=== PATIENT | male | born 1965 | race Caucasian/White ===

== ENCOUNTER 2019-04-12 16:34 | Emergency (ER) | payer OTHER ==
[~2019-04-12] VITALS: Ht 177.8 cm; Wt 102.3 kg
[~2019-04-12 16:34] MED LIST: FLAG500T; LEVA500T; VICO5TAB
[2019-04-12] MEDS ORDERED: IBUP200C25 PO (16:46)
[2019-04-12] MEDS ORDERED: NS 500 ML IV ONE (17:15)
[2019-04-12] MEDS ORDERED: ISOVUE-370 76% 100ML VIAL (Q9967) As Ordered ONE ×2 (17:15→19:47)
--- NOTE | 2019-04-12 17:29 | REP ---
CT BRAIN WITHOUT CONTRAST: CT brain was performed without IV contrast. There is mild to moderate atrophy. There is no midline shift or mass effect. There are patchy low densities in the periventricular white matter bilaterally compatible with small vessel ischemic changes with a more focal band of old infarct in the right frontal region. There is no acute intracranial hemorrhage or extra-axial fluid collection. There are vascular calcifications in the carotid siphons. IMPRESSION: Chronic atrophy and periventricular small vessel ischemic change. No acute intracranial hemorrhage. Electronically Signed by Rogers Kwan MD 04/12/2019 05:50 P
[2019-04-12 17:40] LABS: BASO % 0.4 % (0.0-1.0); EOS # 0.1 10^3/uL (0.0-0.50); EOS % 0.9 % (0.0-3.0); HEMATOCRIT 45.6 % (42.0-52.0); HEMOGLOBIN 16.3 g/dl (13.5-17.5); LYMPH # 1.4 10^3/uL (1.5-4.5); LYMPH % 13.1 % (24.0-44.0); MEAN CORPUSCULAR HEMOGLOBIN 33.5 pg (27.0-33.0); MEAN CORPUSCULAR HGB CONC 35.7 g/dl (32.0-36.5); MEAN CORPUSCULAR VOLUME 93.6 fl (80.0-96.0); MONO # 0.7 10^3/uL (0.0-0.8); MONO % 6.3 % (0.0-5.0); NEUTROPHILS # 8.2 10^3/uL (1.8-7.7); PLATELET COUNT, AUTOMATED 192 10^3/uL (150-450); RED BLOOD COUNT 4.87 10^6/uL (4.30-6.10); WHITE BLOOD COUNT 10.4 10^3/uL (4.0-10.0)
[2019-04-12 17:53] LABS: INR 1.01; PARTIAL THROMBOPLASTIN TIME 24.4 SECONDS (25.0-38.4)
--- NOTE | 2019-04-12 18:00 | REP ---
CHEST: SINGLE VIEW: There is no evidence of acute infiltrate. No pleural effusion is seen. The heart is normal in size. The mediastinal silhouette is unremarkable. The visualized osseous structures are intact. IMPRESSION: No acute pulmonary disease. Electronically Signed by Rogers Kwan MD 04/12/2019 07:13 P
[2019-04-12 18:13] LABS: BLOOD UREA NITROGEN 23 MG/DL (7-18); CALCIUM LEVEL 8.3 MG/DL (8.5-10.1); CARBON DIOXIDE LEVEL 25 MEQ/L (21-32); CHLORIDE LEVEL 109 MEQ/L (98-107); CK-MB VALUE MASS 3.3 NG/ML (<3.6); CPK CREATINE PHOSPHOKINASE 287 U/L (39-308); CREATININE FOR GFR 1.29 MG/DL (0.70-1.30); GLOMERULAR FILTRATION RATE > 60.0 (>56); GLUCOSE, FASTING 102 MG/DL (70-100); MB/CK RELATIVE INDEX 1.15 (< OR =4); POTASSIUM SERUM 3.6 MEQ/L (3.5-5.1); SODIUM LEVEL 142 MEQ/L (136-145); TROPONIN I < 0.02 NG/ML (< 0.10)
[2019-04-12] MEDS ORDERED: ASPIRIN 325 MG TAB PO ONE (18:30)
--- NOTE | 2019-04-12 20:54 | REPVR ---
EXAM: CT Angiography Neck With Contrast EXAM DATE/TIME: 04/12/2019 7:46 PM CLINICAL HISTORY: 53 years old, male; Other: CVA TECHNIQUE: Imaging protocol: Axial computed tomographic angiography images of the neck with intravenous contrast using CT angiography protocol. Coronal and sagittal reformatted images were created and reviewed. 3D rendering: MIP reconstructed images were created and reviewed. Radiation optimization: All CT scans at this facility use at least one of these dose optimization techniques: automated exposure control; mA and/or kV adjustment per patient size (includes targeted exams where dose is matched to clinical indication); or iterative reconstruction. Contrast material: ISOVUE 370;Contrast volume: 100 ml;Contrast route: IV; COMPARISON: No relevant prior studies available. FINDINGS: VASCULATURE: Right common carotid artery: Unremarkable. No stenosis. No dissection or occlusion. Right internal carotid artery: Unremarkable extracranial segment. No stenosis. No dissection or occlusion. Right external carotid artery: Unremarkable. No occlusion or stenosis of the origin. Right vertebral artery: The right vertebral artery is smaller than the left. Left common carotid artery: Unremarkable. No stenosis. No dissection or occlusion. Left internal carotid artery: Unremarkable extracranial segment. No stenosis. No dissection or occlusion. Left external carotid artery: Unremarkable. No occlusion or stenosis of the origin. Left vertebral artery: Unremarkable. No stenosis. No dissection or occlusion. NECK: Sinuses: Minimal bilateral maxillary sinus mucosal thickening, right greater than left. Bones/joints: Degenerative spondylosis of the cervical spine. Soft tissues: Normal. No significant soft tissue swelling. Lungs: Minimal biapical groundglass infiltrates and atelectasis. IMPRESSION: 1. Minimal biapical groundglass infiltrates and atelectasis. 2. Minimal bilateral maxillary sinus disease. 3. Negative CTA neck. 0% stenosis and no occlusion. COMMENT: Reference per NASCET criteria for degree of stenosis: Mild: less than 50% stenosis. Moderate: 50-69% stenosis. Severe: 70-94% stenosis. Near occlusion: 95-99% stenosis. A Electronically signed by: Geronimo Bravo On 04/12/2019 20:54:18 PM
[2019-04-12 20:55] VITALS: BP 161/93
--- NOTE | 2019-04-12 20:57 | REPVR ---
EXAM: CT Angiography Head With Contrast EXAM DATE/TIME: 04/12/2019 7:46 PM CLINICAL HISTORY: 53 years old, male; Other: CVA TECHNIQUE: Imaging protocol: Computed tomographic angiography images of the head with intravenous contrast using CT angiography protocol. Coronal and sagittal reformatted images were created and reviewed. 3D rendering: MIP reconstructed images were created and reviewed. Radiation optimization: All CT scans at this facility use at least one of these dose optimization techniques: automated exposure control; mA and/or kV adjustment per patient size (includes targeted exams where dose is matched to clinical indication); or iterative reconstruction. Contrast material: ISOVUE 370;Contrast volume: 100 ml;Contrast route: IV; COMPARISON: CT Head without contrast 04/12/2019 4:49 PM FINDINGS: Right internal carotid artery: Unremarkable. Intracranial segment is patent with no significant stenosis. No aneurysm. Right anterior cerebral artery: Unremarkable. No occlusion or significant stenosis. No aneurysm. Right middle cerebral artery: Unremarkable. No occlusion or significant stenosis. No aneurysm. Right posterior cerebral artery: Unremarkable. No occlusion or significant stenosis. No aneurysm. Large patent bilateral posterior communicating arteries which are dominant supply to the posterior cerebral arteries. Right vertebral artery: Unremarkable. No occlusion or significant stenosis. No aneurysm. Left internal carotid artery: Unremarkable. Intracranial segment is patent with no significant stenosis. No aneurysm. Left anterior cerebral artery: Unremarkable. No occlusion or significant stenosis. No aneurysm. Left middle cerebral artery: Unremarkable. No occlusion or significant stenosis. No aneurysm. Left posterior cerebral artery: Unremarkable. No occlusion or significant stenosis. No aneurysm. Large patent bilateral posterior communicating arteries which are dominant supply to the posterior cerebral arteries. Left vertebral artery: Unremarkable. No occlusion or significant stenosis. No aneurysm. Basilar artery: Unremarkable. No occlusion or significant stenosis. No aneurysm. IMPRESSION: Negative CTA head. 0% stenosis and no occlusion. Electronically signed by: Geronimo Bravo On 04/12/2019 20:57:28 PM
--- NOTE | 2019-04-12 21:02 | ECGEPIP ---
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
== END 2019-04-12 20:58 | disposition short-term general hospital (02) ==
LOC: M ED 16:34 → EDBD 16:34 → M ED 20:58
DX: I63.9 Cerebral infarction, unspecified (principal); I10 Essential (primary) hypertension; R29.700 NIHSS score 0; I67.82 Cerebral ischemia; Z86.79 Personal history of other diseases of the circulatory system; I45.10 Unspecified right bundle-branch block; Z86.73 Personal history of transient ischemic attack (TIA), and cerebral infarction without residual deficits
CPT/HCPCS: 70450; 70496; 70498; 71045; 80048; 82550; 82553; 85025; 85610; 85730; 86850; 86900; 86901; 93005; 93041; 94760; 96360; 99285; Q9967

== ENCOUNTER 2019-05-16 09:39 | Emergency (ER) | payer OTHER ==
[~2019-05-16] VITALS: Ht 177.8 cm; Wt 96.4 kg
[~2019-05-16 09:39] MED LIST changes: +IBUP200C25 PO
[2019-05-16 10:33] LABS: BASO # 0.1 10^3/uL (0.0-0.2); BASO % 0.6 % (0.0-1.0); EOS # 0.2 10^3/uL (0.0-0.50); EOS % 1.9 % (0.0-3.0); HEMATOCRIT 48.5 % (42.0-52.0); HEMOGLOBIN 17.1 g/dl (13.5-17.5); LYMPH # 2.1 10^3/uL (1.5-4.5); LYMPH % 25.6 % (24.0-44.0); MEAN CORPUSCULAR HEMOGLOBIN 32.3 pg (27.0-33.0); MEAN CORPUSCULAR HGB CONC 35.3 g/dl (32.0-36.5); MEAN CORPUSCULAR VOLUME 91.5 fl (80.0-96.0); MONO # 0.8 10^3/uL (0.0-0.8); MONO % 10.1 % (0.0-5.0); NEUTROPHILS # 5.1 10^3/uL (1.8-7.7); NEUTROPHILS % 61.6 % (36.0-66.0); PLATELET COUNT, AUTOMATED 199 10^3/uL (150-450); WHITE BLOOD COUNT 8.3 10^3/uL (4.0-10.0)
[2019-05-16 11:14] LABS: BLOOD UREA NITROGEN 15 MG/DL (7-18); CALCIUM LEVEL 8.7 MG/DL (8.5-10.1); CARBON DIOXIDE LEVEL 28 MEQ/L (21-32); CHLORIDE LEVEL 106 MEQ/L (98-107); GLOMERULAR FILTRATION RATE > 60.0 (>56); GLUCOSE, FASTING 87 MG/DL (70-100); POTASSIUM SERUM 3.8 MEQ/L (3.5-5.1); SODIUM LEVEL 142 MEQ/L (136-145)
[2019-05-16] MEDS ORDERED: CHLORTHALIDONE 25 MG TAB PO ONE (11:30)
[2019-05-16] MEDS ORDERED: lisinopriL 10 MG TAB PO ONE (11:30)
[2019-05-16] MEDS ORDERED: amLODIPine 5 MG TAB PO ONE (12:45)
[2019-05-16 12:55] VITALS: BP 172/108
--- NOTE | 2019-05-16 13:50 | REP ---
PORTABLE CHEST X-RAY: Single view. HISTORY: Hypertension. COMPARISON CHEST X-RAY: April 12, 2019. FINDINGS: EKG monitoring electrodes overlie the chest. There are degenerative disc changes in the thoracic spine. Heart is not enlarged. The aorta is somewhat tortuous. Pleural angles are sharp. No infiltrate is seen in the lung méndez. IMPRESSION: No acute disease. Electronically Signed by Richard Coreas MD 05/16/2019 04:41 P
[2019-05-16] MEDS ORDERED: LISI20TA20 PO (14:44)
[2019-05-16 14:45] VITALS: BP 156/87
--- NOTE | 2019-05-17 20:36 | ECGEPIP ---
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
== END 2019-05-16 14:52 | disposition home or self-care (01) ==
LOC: M ED 09:39
DX: R03.0 Elevated blood-pressure reading, without diagnosis of hypertension (principal); R00.1 Bradycardia, unspecified; I45.19 Other right bundle-branch block; Z79.899 Other long term (current) drug therapy

== ENCOUNTER → 2019-07-09 | Outpatient (REF) | payer OTHER ==
[~2019-07-09] MED LIST changes: +LISI20TA20 PO
[2019-07-09 16:03] LABS: CHOLESTEROL LEVEL 321 MG/DL (<200); CHOLESTEROL RISK RATIO 7.465 (<5); HDL CHOLESTEROL 43 MG/DL (>40); NON-HDL-C 278 MG/DL; TRIGLYCERIDES LEVEL 464 MG/DL (<150)
[2019-07-09 16:32] LABS: HEMOGLOBIN A1c 5.8 %
== END ==
LOC: M SFHCPLAZ 13:53
PROVIDERS: ATTEND Family Medicine
DX: Z13.1 Encounter for screening for diabetes mellitus (principal); Z13.220 Encounter for screening for lipoid disorders

== ENCOUNTER → 2020-03-05 | Outpatient (REF) | payer OTHER ==
[~2020-03-05] MED LIST changes: +ATEN50TA9; +ATOR80TA59; +MECL1TAB31 PO
[2020-03-05 13:43] LABS: CHOLESTEROL RISK RATIO 4.783 (<5)
== END ==
LOC: M SFHCPLAZ 10:46
PROVIDERS: ATTEND Family Medicine
DX: E78.5 Hyperlipidemia, unspecified (principal)

== ENCOUNTER 2020-03-31 13:53 | Emergency (ER) | payer OTHER ==
[~2020-03-31] VITALS: Ht 175.3 cm; Wt 95.5 kg
[~2020-03-31 13:53] MED LIST changes: -ATEN50TA9; -ATOR80TA59; -MECL1TAB31 PO
[2020-03-31] MEDS ORDERED: ATOR80TA59 (14:17)
[2020-03-31] MEDS ORDERED: ATEN50TA9 (14:17)
[2020-03-31 14:48] VITALS: BP 127/82
[2020-03-31 15:05] LABS: BASO # 0.1 10^3/uL (0.0-0.2); BASO % 0.5 % (0.0-1.0); EOS # 0.2 10^3/uL (0.0-0.5); EOS % 1.6 % (0.0-3.0); HEMATOCRIT 49.8 % (42.0-52.0); HEMOGLOBIN 16.7 g/dl (13.5-17.5); LYMPH # 2.3 10^3/uL (1.5-5.0); LYMPH % 24.6 % (24.0-44.0); MEAN CORPUSCULAR HEMOGLOBIN 31.5 pg (27.0-33.0); MEAN CORPUSCULAR HGB CONC 33.5 g/dl (32.0-36.5); MONO # 0.9 10^3/uL (0.0-0.8); MONO % 10.1 % (0.0-5.0); NEUTROPHILS # 5.8 10^3/uL (1.5-8.5); NEUTROPHILS % 62.9 % (36.0-66.0); PLATELET COUNT, AUTOMATED 204 10^3/uL (150-450); WHITE BLOOD COUNT 9.2 10^3/uL (4.0-10.0)
[2020-03-31 15:26] LABS: INR 0.98; PROTHROMBIN TIME 12.7 SECONDS (11.8-14.0)
[2020-03-31 15:36] LABS: BLOOD UREA NITROGEN 24 MG/DL (7-18); CALCIUM LEVEL 9.3 MG/DL (8.5-10.1); CARBON DIOXIDE LEVEL 30 MEQ/L (21-32); CHLORIDE LEVEL 105 MEQ/L (98-107); CK-MB VALUE MASS < 1.0 NG/ML (<3.6); CPK CREATINE PHOSPHOKINASE 161 U/L (39-308); CREATININE FOR GFR 1.51 MG/DL (0.70-1.30); GLOMERULAR FILTRATION RATE 51.5 (>56); GLUCOSE, FASTING 104 MG/DL (70-100); MB/CK RELATIVE INDEX 0.62 (< OR =4); POTASSIUM SERUM 3.9 MEQ/L (3.5-5.1); SODIUM LEVEL 142 MEQ/L (136-145); TROPONIN I < 0.02 NG/ML (< 0.10)
--- NOTE | 2020-03-31 16:36 | ECGEPIP ---
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
--- NOTE | 2020-03-31 16:36 | REPVR ---
PROCEDURE INFORMATION: Exam: MR Head Without Contrast Exam date and time: 03/31/2020 4:03 PM Age: 54 years old Clinical indication: Condition or disease; Aneurysm, cerebral; Other: Unbalanced gait, dizziness; Prior surgery; Surgery date: 6+ months; Surgery type: Aneurysm repair 2005 no coils/clips/stents used cleared per Dr. Cartagena; Patient HX: Dizziness, confusion, unbalanced gait as of this morning, HX brain aneurysm; Additional info: Vertigo R/O cerebellar CVA TECHNIQUE: Imaging protocol: MR of the head without contrast. COMPARISON: CT Head without contrast 03/31/2020 2:20 PM FINDINGS: Brain: Prior right frontal shunt catheter tract is apparent with accompanying gladys hole right frontal bone. There is probable encephalomalacia medially in the thalamus on the left. No restricted diffusion to suggest acute infarction. The posterior fossa is unremarkable. No acute intracranial hemorrhage. A minimal number of white matter hyperintensities are apparent within the centrum semiovale which is a nonspecific finding but often associated with small vessel occlusive disease. There is a probable prior hemorrhage in the medial left thalamus. Ventricles: No ventriculomegaly. Anatomic distortion of the 3rd ventricle along the left thalamic margin. Bones/joints: Unremarkable other than right frontal gladys hole. Sinuses: Mucoperiosteal thickening in the floor the right maxillary antrum.The remainder of the paranasal sinuses appear clear. Mastoid air cells: Normal as visualized. No mastoid effusion. Orbits: Unremarkable. Soft tissues: Unremarkable. IMPRESSION: No evidence of acute cerebral infarction or intracranial hemorrhage. Electronically signed by: Chel El On 03/31/2020 16:35:42 PM
[2020-03-31] MEDS ORDERED: MECL1TAB31 PO (16:43)
[2020-03-31 17:00] VITALS: BP 117/79
--- NOTE | 2020-04-01 01:30 | REP ---
CT BRAIN WITHOUT CONTRAST: CT brain performed without IV contrast and compared to prior study of 04/12/2019. No change since that prior exam. There is mild atrophy. There is no midline shift or mass effect. Kwan-white differentiation is well maintained with old ischemic change in the right frontal region, stable. There is no acute hemorrhage. There is no extra-axial fluid collection. There are vascular calcifications in the carotid siphons. IMPRESSION: Stable chronic findings with no evidence of acute intracranial hemorrhage, midline shift, or mass effect. Electronically Signed by Rogers Kwan MD 04/01/2020 11:35 P
--- NOTE | 2020-04-01 02:10 | REP ---
CHEST, SINGLE VIEW: Single view of the chest is performed and compared to prior study of 12/14/2018. There are mild stable chronic bibasilar interstitial opacities. No acute infiltrate is seen. Heart is not enlarged. There is tortuosity of the thoracic aorta. Mediastinal silhouette is unchanged. There are degenerative changes of the spine. IMPRESSION: Stable chronic findings with no acute pulmonary disease. Electronically Signed by Rogers Kwan MD 04/01/2020 11:38 P
== END 2020-03-31 17:36 | disposition home or self-care (01) ==
LOC: M ED 13:53 → EDBD 13:53 → M ED 17:36
DX: R42 Dizziness and giddiness (principal); Z87.820 Personal history of traumatic brain injury; I10 Essential (primary) hypertension; F41.9 Anxiety disorder, unspecified; Z79.899 Other long term (current) drug therapy

== ENCOUNTER 2021-02-20 16:27 | Observation (INO) | payer OTHER ==
[~2021-02-20] VITALS: Ht 177.8 cm; Wt 103.5 kg
[~2021-02-20 16:27] MED LIST changes: +ATEN50TA9; +ATOR80TA59 PO; +MECL1TAB31 PO
[2021-02-20] MEDS ORDERED: CARV3.12 PO (16:49)
[2021-02-20] MEDS ORDERED: LOSA100T50 PO (16:50)
--- NOTE | 2021-02-20 17:47 | REPVR ---
PROCEDURE INFORMATION: Exam: CT Head Without Contrast Exam date and time: 02/20/2021 5:16 PM Age: 55 years old Clinical indication: Dizziness; Additional info: Dizzy TECHNIQUE: Imaging protocol: Computed tomography of the head without contrast. Radiation optimization: All CT scans at this facility use at least one of these dose optimization techniques: automated exposure control; mA and/or kV adjustment per patient size (includes targeted exams where dose is matched to clinical indication); or iterative reconstruction. COMPARISON: CT Head without contrast 03/31/2020 2:20 PM FINDINGS: Tubes, catheters and devices: Prior ventriculostomy catheter tract right superior anterior frontal lobe. Brain: Chronic left anteromedial thalamic infarction. Mild hypoattenuating foci are noted in the anterior lateral ventricular periventricular white matter bilaterally. No intracranial hemorrhage. No mass or acute cortical infarction identified. Ventricles: Prominence of the ventricular system and subarachnoid spaces is consistent with the patient's age of 55 years. Deformity of the 3rd ventricle secondary to left thalamic infarction. No hydrocephalus or evidence of increased intracranial pressure. Paranasal sinuses: Hypoplastic right frontal sinus, normal variant. Mastoid air cells: Visualized mastoid air cells are well aerated. Vasculature: Atherosclerotic calcifications are present involving the left carotid artery siphon. Bones/joints: Previous gladys hole right superior frontal region. Soft tissues: Unremarkable. IMPRESSION: 1. Chronic left anteromedial thalamic infarction. 2. Age appropriate supratentorial and infratentorial atrophy. 3. Mild chronic white matter microvascular ischemic disease. 4. No acute intracranial abnormality identified. Electronically signed by: Rafa Turk On 02/20/2021 17:47:23 PM
[2021-02-20 17:57] LABS: BASO # 0.1 10^3/uL (0.0-0.2); BASO % 0.7 % (0.0-1.0); EOS # 0.2 10^3/uL (0.0-0.5); EOS % 2.3 % (0.0-3.0); HEMATOCRIT 45.1 % (42.0-52.0); HEMOGLOBIN 15.7 g/dl (13.5-17.5); LYMPH # 2.6 10^3/uL (1.5-5.0); LYMPH % 29.9 % (24.0-44.0); MEAN CORPUSCULAR HEMOGLOBIN 33.1 pg (27.0-33.0); MEAN CORPUSCULAR HGB CONC 34.8 g/dl (32.0-36.5); MEAN CORPUSCULAR VOLUME 94.9 fl (80.0-96.0); MONO # 0.8 10^3/uL (0.0-0.8); MONO % 9.6 % (2.0-8.0); NEUTROPHILS % 57.3 % (36.0-66.0); PLATELET COUNT, AUTOMATED 185 10^3/uL (150-450); RED BLOOD COUNT 4.75 10^6/uL (4.30-6.10); WHITE BLOOD COUNT 8.8 10^3/uL (4.0-10.0)
[2021-02-20 18:35] LABS: ALBUMIN 3.9 GM/DL (3.2-5.2); BILIRUBIN,TOTAL 0.8 MG/DL (0.2-1.0); CALCIUM LEVEL 8.9 MG/DL (8.5-10.1); CREATININE FOR GFR 1.38 MG/DL (0.70-1.30); POTASSIUM SERUM 3.8 MEQ/L (3.5-5.1); TOTAL PROTEIN 6.8 GM/DL (6.4-8.2)
[2021-02-20 20:29] LABS: RSV AMPLIFICATION NEGATIVE (NEGATIVE)
--- NOTE | 2021-02-20 21:41 | ECGEPIP ---
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
--- NOTE | 2021-02-20 21:49 | REPVR ---
PROCEDURE INFORMATION: Exam: MR Head Without Contrast Exam date and time: 02/20/2021 8:30 PM Age: 55 years old Clinical indication: Other: Extreme vertigo, vision changes, HX of CVA TECHNIQUE: Imaging protocol: MR of the head without contrast. COMPARISON: MRI-Brain without Contrast 03/31/2020 3:49 PM FINDINGS: Brain: There is mild cerebral volume loss. Changes of chronic white matter microvascular disease are present. No signs of a recent infarction or hemorrhage. No midline shift or mass effect. Old left thalamic infarction. Encephalomalacia related to a prior ventricular catheter tract in the right frontal lobe. Cerebral ventricles: Normal. No ventriculomegaly. Bones/joints: Unremarkable. Paranasal sinuses: Normal as visualized. No acute sinusitis. Mastoid air cells: Normal as visualized. No mastoid effusion. Orbits: Unremarkable. Soft tissues: Unremarkable. IMPRESSION: 1. Mild cerebral volume loss and chronic white matter changes. No acute intracranial abnormality. 2. Old left thalamic infarction. Electronically signed by: All Trammell On 02/20/2021 21:48:45 PM
--- NOTE | 2021-02-20 21:55 | REPVR ---
PROCEDURE INFORMATION: Exam: MRA Head Without Contrast; Arteriography Exam date and time: 02/20/2021 8:30 PM Age: 55 years old Clinical indication: Vertigo and other: Extreme vertigo, vision changes, HX of CVA TECHNIQUE: Imaging protocol: Magnetic resonance angiography head without contrast. Exam focused on the arteries. COMPARISON: MRI-Brain without Contrast 03/31/2020 3:49 PM FINDINGS: ANTERIOR CIRCULATION: Right internal carotid artery: Intracranial segment is patent with no significant stenosis. No aneurysm. Right middle cerebral artery: No occlusion or significant stenosis. No aneurysm. Right anterior cerebral artery: No occlusion or significant stenosis. No aneurysm. Left internal carotid artery: Intracranial segment is patent with no significant stenosis. No aneurysm. Left middle cerebral artery: No occlusion or significant stenosis. No aneurysm. Left anterior cerebral artery: No occlusion or significant stenosis. No aneurysm. POSTERIOR CIRCULATION: Right vertebral artery: No occlusion or significant stenosis. No aneurysm. Left vertebral artery: No occlusion or significant stenosis. No aneurysm. Basilar artery: No occlusion or significant stenosis. No aneurysm. Right posterior cerebral artery: origin of the right HEAD IRRIGATOR without significant stenosis or occlusion. Left posterior cerebral artery: origin of the left HEAD IRRIGATOR without significant stenosis or occlusion. IMPRESSION: No significant stenosis, aneurysm, or large vessel occlusion. Electronically signed by: All Trammell On 02/20/2021 21:55:29 PM
[2021-02-20] MEDS ORDERED: CHLO125TA PO (22:28)
[2021-02-20] MEDS ORDERED: ACETAMINOPHEN TAB 650MG DOSE (2X325MG) PO PRN (23:40)
[2021-02-20] MEDS ORDERED: MOM 30ML SUSPENSION UDC PO PRN (23:40)
[2021-02-20] MEDS ORDERED: NS 1,000 ML IV ONE (23:40)
[2021-02-20] MEDS ORDERED: MAALOX 30 ML SUSP *UDC PO PRN (23:40)
[2021-02-20] MEDS ORDERED: RAMELTEON 8 MG TAB (ROZEREM) PO PRN (23:40)
[2021-02-21 01:14] VITALS: BP 143/100
[2021-02-21 02:12] VITALS: BP 138/98
--- NOTE | 2021-02-21 03:33 | HPEPDOC ---
General Date of Admission 02/20/21 AT 2350 Date of Service: Feb 20, 2021 Chief Complaint The patient is a 55-year-old male admitted with a reason for visit of DIZZY. Source: Patient, RN/MD, Old records Exam Limitations: No limitations Associated Symptoms: Malaise, Other (Worsening vision) History of Present Illness Mr. Beach is a 55 year-old male with significant PMH of s/p CVA/brain aneurysm 2005, blood clot kidney s/p injury at work when he was pinned between the floor and power erlinda in 2009, Intracranial hemorrhage (second CVA), severe Essential Hypertension, Hypercholesteremia, presents to [facility] ER with worsening vision changes, reporting he is seeing 3 of everything vertically at times then horizontally, felt hot, flushed, tingling sensations up bilateral forearms, and he had to grab a hold of the kitchen counter because he became lightheaded and did not want to fall to the floor. Mr. Beach had extensive rehabilitation after his firs initial CVA with residual right sided weakness and blurred vision. Today he reports his vision suddenly changed with the last episode causing him to become concerned that he was suffering another stroke, called the nurse hotline, and was instructed to come to the ER for further evaluation. Patient will be admitted to Medical-Surgical unit on telemetry with pulse oximetry with ongoing evaluation and with Tax Professional, Enzo Guerra. consulted, will see patient tomorrow. In reviewing patients MRA Head without contrast: it shows no acute intracranial hemorrhage, mass effect or midline shift, no stenosis, aneurysm or vessel occlusion (large). MRI Head w/o IV contrast does reveal cerebral loss with white matter changes, encephalomalacia to right frontal lobe and old left thalamic infarct. Home Medications Scheduled Atorvastatin Calcium (Atorvastatin Calcium) 80 Mg Tablet, 80 MG PO DAILY, (Reported) Carvedilol (Carvedilol) 3.125 Mg Tablet, 3.125 MG PO BID, (Reported) Chlorthalidone (Chlorthalidone) 25 Mg Tablet, 12.5 MG PO DAILY, (Reported) Losartan Potassium (Losartan Potassium) 100 Mg Tablet, 100 MG PO QHS, (Reported) Allergies Coded Allergies: No Known Allergies (Unverified , 04/12/19) Past Medical History Medical History CVA with aneurysm 2005 with residual right sided weakness; Clot near kidney after injured at work 2010; Intracranial hemorrhage, severe Essential hypertension, Irregular heart beat, Family History Significant Family History: Hypertension Social History * Smoker: Denies Alcohol: Denies Drugs: prescription drugs Psychosocial History: No pertinent psych hx A-FIB/CHADSVASC A-FIB History Current/History of A-Fib/PAF?: No Current PO Anticoag Therapy: Yes Age/Risk Factor Scoring CHADSVASC: CHADSVASC Response (Comments) Value Age Risk Factor Age < 65 years old 0 Gender Risk Factor Male 0 Hx of HTN Yes 1 Hx of Stroke/TIA/or VTE Yes 2 Total 3 Treatment Treatment ordered: Apixaban Review of Systems Constitutional: Reports: Fatigue Eyes: Reports: Pain, Vision change Skin: Denies: Rash, Lesions, Jaundice, Bruising, Itching, Dry, Breakdown, Nail Changes, Other Pulmonary: Denies: Dyspnea, Cough, Pleuritic Chest Pain, Other Symptoms Cardiovascular: Reports: Palpitations, Lt Headedness Genitourinary: Denies: Dysuria, Frequency, Incontinence, Hematuria, Retention, Other Symptoms Hematologic: Denies: Bruising, Bleeding Excessively, Petecchia, Purpura, Enlarged Lymph Nodes, Other Hematologic Endocrine: Denies: Polydipsia, Polyphagia, Polyuria, Heat Intolerance, Cold Intolerance, Other Endocrine Sx Neurological: Reports: Weakness, Numbness (arms when episode occured and felt hot sensation over both arms) Psych: Reports: Mood Normal Physical Examination General Exam: Positive: Alert, Cooperative, Mild Distress Eye Exam: Positive: Conjunctiva & lids normal ENT Exam: Positive: Atraumatic, Mucous membr. moist/pink, Tongue Midline, Other ENT (Teeth decay moderately, multple missing teeth) Neck Exam: Positive: Supple Chest Exam: Positive: Clear to auscultation, Normal air movement Heart Exam: Positive: Bradycardic (EKG- Sinus bradycardia HR 57, QT/QTC 428/416), Irregular Rhythm (Regular Irregular Rythm) Telemetry: Positive: Atrial fibrillation (on groundwater consultant), Bradycardia Abdomen Exam: Positive: Normal bowel sounds, Soft Extremity Exam: Positive: Edema Neuro Exam: Positive: Normal Speech, Cranial Nerves 3-12 NL Psych Exam: Positive: Mood NL, Other (Forgetfulness, Poor Historian with Memory Deficits) Vital Signs Vital Signs Date Time Temp Pulse Resp B/P (MAP) Pulse Ox O2 Delivery O2 Flow Rate FiO2 6/4/21 23:00 61 20 137/83 (101) 91 Room Air 02/20/21 16:52 98.2 Laboratory Data Labs 24H Laboratory Tests 2 02/20/21 17:42: Immature Granulocyte % (Auto) 0.2, Neutrophils (%) (Auto) 57.3, Lymphocytes (%) (Auto) 29.9, Monocytes (%) (Auto) 9.6H, Eosinophils (%) (Auto) 2.3, Basophils ( %) (Auto) 0.7, Neutrophils # (Auto) 5.0, Lymphocytes # (Auto) 2.6, Monocytes # (Auto) 0.8, Eosinophils # (Auto) 0.2, Basophils # (Auto) 0.1, Nucleated Red Blood Cells % (auto) 0.0, Anion Gap 7L, Glomerular Filtration Rate 57.0, Calcium Level 8.9, Total Bilirubin 0.8, Aspartate Amino Transf (AST/SGOT) 31, Alanine Aminotransferase (ALT/SGPT) 61, Alkaline Phosphatase 73, Total Protein 6.8, Albumin 3.9, Albumin/Globulin Ratio 1.3 02/20/21 19:46: Coronavirus (COVID-19)(PCR) NEGATIVE, Influenza Type A (RT-PCR) NEGATIVE, Influenza Type B (RT-PCR) NEGATIVE, Respiratory Syncytial Virus (PCR) NEGATIVE CBC/BMP Laboratory Tests 02/20/21 17:42 Problems (1) Vision disturbance Status: Acute Problem Specific Plan: Consult Specialist (Dr. Miller), Monitor Clinically Problem Text: Mr. Beach is a 55 year-old male who is admitted to [facility] for changes in his vision and generalized weakness. Tax Professional Dr. Presley consulted and will see patient tomorrow. Vision disturbance-Acute on Chronic Admit to observation unit Tax Professional Dr. Presley to follow patient Fall precautions Monitor VS q shift Check AM labs and replace electrolytes as needed Initiate bowel regimen Neurology consulted does not believe this event is due to CVA (Dr. Godfrey consulted with Neurology) Irregular Regular Heart beat vs Atrial Fibrillation-Acute vs Acute on Chronic Patient his a poor historian and forgotten but then remembered he was prescribed Re-peat EKG to assess if Irregular Regular HR is Atrial Fibrillation which is seen on groundwater consultant in ED and again while patient is on unit. Eliquis 5mg po bid in November 2020. Said he has not taken any of the medication because he read it is a blood thinner. He is scared of taking it due to previous CVA. Patient possibly has Atrial Fibrillation but cannot confirm due to memory deficit following CVA in 2005 and reported another CVA ~ 2 or more years ago (patient uncertain of year and or date). MRA today does not show a acute hemorrhage, mass effect or midline shift. Morning team provider to consult with Neurology for Recommendations if patient should be taking Eliquis 5 mg po BID due to uncertainty if patient had Hemorrhagic stroke in 2005 vs Ischemic CVA or if second CVA was Hemorrhagic, in which instance Eliquis is contraindicated. Essential Hypertension-chronic Monitor blood pressure-goal below 130/[address] Brown Continue taking home medications: Losartan Potassium 100 mg po qhs; Carvedilol 3.125 mg po bid, Chlorthalidone 50-25 mg po daily Con continuous telemetry with pulse oximeter (HR regular irregular regular) with EKG showing sinus bradycardia with HR 54, QT/QTC 409-389 (not prolonged) with Incomplete Right Bundle Branch Block. Old CVA/Brain Aneurysm- Chronic Neuro checks q 4 hours Continue taking Atorvastatin 80 mg po qHS PPI Prophylaxis: not warranted. Maalox prn DVT Prophylaxis: SCDs and CALI Kerene BLE, Continue home medication Eliquis 5 mg po bid Discharge: Pending clinical course (2) Weakness generalized Status: Acute Problem Specific Plan: Monitor Clinically, Repeat Labs (3) Regularly irregular pulse rhythym Status: Acute Problem Specific Plan: Monitor Clinically (4) Vertigo Status: Acute Problem Specific Plan: Monitor Clinically, Repeat Labs (5) History of intracranial hemorrhage Status: Chronic Problem Specific Plan: Monitor Clinically (6) Asymptomatic hypertension Status: Chronic Problem Specific Plan: Monitor Clinically (7) CVA (cerebral vascular accident) Status: Chronic Discussed With: Patient Problem Specific Plan: Consult Specialist, Monitor Clinically, Repeat Labs Plan / VTE VTE Prophylaxis Ordered?: Yes VTE Exclusion Mechanical Proph: N/A:VTE Prophy Ordered VTE Exclusion Pharmacological: N/A:VTE Prophy Ordered Plan IVF: Initiate Diagnostics: Check Labs, Repeat Labs in AM, MRI Anticipated Discharge: Home SANDI KIRKLAND [facility] Feb 20, 2021 23:53
[2021-02-21] MEDS ORDERED: atenoloL 50 MG TAB PO ONE (04:00)
[2021-02-21] MEDS ORDERED: CARVedilol 3.125 MG TAB PO ONE (04:00)
[2021-02-21] MEDS ORDERED: CHLORTHALIDONE 25 MG TAB PO ONE (04:00)
[2021-02-21] MEDS ORDERED: APIXABAN 5 MG TAB (ELIQUIS) PO SCH ×2 (05:00→09:00)
--- NOTE | 2021-02-21 05:21 | IPNPDOC ---
Text Note Date of Service The patient was seen on 02/21/21. NOTE 0516: EKG shows Atrial Fibrillation , inferior infarct with age undetermined. with vent rate of 77. Due to this finding it would benefit patient to take Eliquis for Atrial Fibrillation which increases his risk for having embolic CVA. Will continue to monitor patient. VS,Fishbone, I+O VS, Fishbone, I+O Laboratory Tests 02/20/21 17:42 Vital Signs Date Time Temp Pulse Resp B/P (MAP) Pulse Ox O2 Delivery O2 Flow Rate FiO2 02/21/21 02:12 138/98 (111) 02/21/21 01:14 98.1 65 20 95 Room Air I&O- Last 24 Hours up to 6 AM 02/21/21 06:00 Intake Total 1000 ml Output Total 0 ml Balance 1000 ml SANDI KIRKLANDP Feb 21, 2021 05:21
[2021-02-21 05:59] LABS: BASO # 0.1 10^3/uL (0.0-0.2); BASO % 0.7 % (0.0-1.0); EOS # 0.2 10^3/uL (0.0-0.5); EOS % 2.2 % (0.0-3.0); HEMATOCRIT 48.9 % (42.0-52.0); HEMOGLOBIN 16.7 g/dl (13.5-17.5); LYMPH # 2.3 10^3/uL (1.5-5.0); LYMPH % 27.3 % (24.0-44.0); MEAN CORPUSCULAR HEMOGLOBIN 32.2 pg (27.0-33.0); MEAN CORPUSCULAR HGB CONC 34.2 g/dl (32.0-36.5); MEAN CORPUSCULAR VOLUME 94.2 fl (80.0-96.0); MONO # 0.8 10^3/uL (0.0-0.8); NEUTROPHILS # 4.9 10^3/uL (1.5-8.5); NEUTROPHILS % 59.6 % (36.0-66.0); PLATELET COUNT, AUTOMATED 176 10^3/uL (150-450); RED BLOOD COUNT 5.19 10^6/uL (4.30-6.10); WHITE BLOOD COUNT 8.3 10^3/uL (4.0-10.0)
[2021-02-21 06:00] VITALS: BP 111/78
[2021-02-21] MEDS ORDERED: HEPARIN SOD (PORCINE) 5000UNITS/ML 1ML VIAL/SYRINGE SC SCH (06:00)
[2021-02-21 06:58] LABS: ALBUMIN 3.5 GM/DL (3.2-5.2); BILIRUBIN,TOTAL 1.2 MG/DL (0.2-1.0); CALCIUM LEVEL 8.2 MG/DL (8.5-10.1); CREATININE FOR GFR 1.35 MG/DL (0.70-1.30); GLOMERULAR FILTRATION RATE 58.4 (>56); MAGNESIUM LEVEL 2.1 MG/DL (1.8-2.4); POTASSIUM SERUM 3.5 MEQ/L (3.5-5.1); THYROID STIMULATING HORMONE 3.88 uIU/ML (0.358-3.740); TOTAL PROTEIN 6.5 GM/DL (6.4-8.2)
[2021-02-21 08:22] VITALS: BP 118/90
[2021-02-21] MEDS ORDERED: atenoloL 50 MG TAB PO SCH (09:00)
[2021-02-21] MEDS ORDERED: CHLORTHALIDONE 25 MG TAB PO SCH (09:00)
[2021-02-21] MEDS ORDERED: DOCUSATE SODIUM 100MG CAPSULE PO SCH (09:00)
[2021-02-21] MEDS ORDERED: CARVedilol 3.125 MG TAB PO SCH (09:00)
--- NOTE | 2021-02-21 09:14 | REP ---
INDICATION: Worsening blurry vision COMPARISON: None. TECHNIQUE: Kwan scale and color Doppler evaluation using linear high frequency transducer Findings: FINDINGS: Two-dimensional kwan scale and color images demonstrate normal arterial lumen with laminar flow and no appreciable narrowing. Color Doppler interrogation demonstrates normal arterial wave patterns and velocities with no significant spectral broadening. Normal flow direction is appreciated in the bilateral vertebral arteries. ICA peak systolic velocity: Right 52.1 cm/s; Left 56.9 cm/s ICA diastolic velocity: Right 26.5 cm/s; Left 24.9 cm/s ECA peak systolic velocity: Right 65.2 cm/s; Left 53.0 cm/s CCA peak systolic velocity: Right 69.2 cm/s; Left 52.3 cm/s ICA/CCA ratio: Right 0.75 cm/s; Left 1.1 cm/s IMPRESSION: No hemodynamically significant areas of narrowing or stenosis appreciated. Based on set standards narrowing falls within the less than 50% range. <Electronically signed by Shahram Briggs > 02/21/21 0910
[2021-02-21 14:00] VITALS: BP 127/90
[2021-02-21] MEDS ORDERED: ASPI81TA26 PO (15:24)
[2021-02-21] MEDS ORDERED: LOSARTAN 50MG TABLET PO SCH (21:00)
[2021-02-21] MEDS ORDERED: ATORVASTATIN 20 MG TAB PO SCH (21:00)
--- NOTE | 2021-02-21 21:22 | ECGEPIP ---
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
--- NOTE | 2021-02-21 22:37 | DS.PDOC ---
Discharge Summary General Date of Admission Feb 20, 2021 at 16:28 Date of Discharge Feb 21, 2021 Specialist/Consultants Involve: A Discharge Summary PROCEDURES PERFORMED DURING STAY: None ADMITTING DIAGNOSES: 1. Vision disturbance 2. Atrial fibrillation not on anticoagulation due to choice 3. Hypertension 4. History of hemorrhagic CVA DISCHARGE DIAGNOSES: 1. TIA 2. Atrial fibrillation not on anticoagulation due to choice 3. Hypertension 4. History of hemorrhagic CVA COMPLICATIONS/CHIEF COMPLAINT: Vision Disturbance,Weakness Generalized. HISTORY OF PRESENT ILLNESS: Copied from admitting provider's H&P " Mr. Beach is a 55 year-old male with significant PMH of s/p CVA/brain aneurysm 2005, blood clot kidney s/p injury at work when he was pinned between the floor and power erlinda in 2009, Intracranial hemorrhage (second CVA), severe Essential Hypertension, Hypercholesteremia, presents to [facility] ER with worsening vision changes, reporting he is seeing 3 of everything vertically at times then horizontally, felt hot, flushed, tingling sensations up bilateral forearms, and he had to grab a hold of the kitchen counter because he became lightheaded and did not want to fall to the floor. Mr. Beach had extensive rehabilitation after his firs initial CVA with residual right sided weakness and blurred vision. Today he reports his vision suddenly changed with the last episode causing him to become concerned that he was suffering another stroke, called the nurse hotline, and was instructed to come to the ER for further evaluation. Patient will be admitted to Medical-Surgical unit on telemetry with pulse oximetry with ongoing evaluation and with Furnace Operator, Enzo Guerra. hardik, will see patient tomorrow. In reviewing patients MRA Head without co ntrast: it shows no acute intracranial hemorrhage, mass effect or midline shift, no stenosis, aneurysm or vessel occlusion (large). MRI Head w/o IV contrast does reveal cerebral loss with white matter changes, encephalomalacia to right frontal lobe and old left thalamic infarct. " HOSPITAL COURSE: The following morning, patient tells me his vision was back a baseline. Normally, he has vertigo diplopia. Yesterday, he had an episode where his diplopia became vertical which scared him. It lasted for an hour before becoming horizontal again. I ordered an US of carotids and echocardiogram to complete a TIA work up. I spoke with Dr. Flores with this information, and Dr. Flores thought it would be reasonable to start aspirin. Otherwise, I reached out to the ladies' hat trimmer, Dr. Presley. Going over the case, Dr. Presley felt that he could not add more to the case during the hospitalization. He felt comfortable for the patient to go home and follow up outpatient. I relayed that information to the patient. I discussed anticoagulation with the patient for his atrial fibrillation. He tells me that his as400 programmer analyst wants him to to a procedure for the atrial fibrillation. He does not know what the procedure would entail and if he needed to be on anticoagulation. He is afraid of anticoagulation because he cuts his hands often. He also has a history of hemorrhagic stroke. Patient wishes to defer anticoagulation until he speaks with his as400 programmer analyst. Otherwise, he felt well and felt ready for home. Patient was subsequently discharged home. DISCHARGE MEDICATIONS: Please see below. ALLERGIES: Please see below. PHYSICAL EXAMINATION ON DISCHARGE: VITAL SIGNS: Please see below. GENERAL: Comfortable, in no apparent distress HEENT: Head normocephalic, atraumatic NECK: Supple CARDIOVASCULAR EXAMINATION: Regular rate, irregular rhythm RESPIRATORY EXAMINATION: Lungs clear to auscultation bilaterally ABDOMINAL EXAMINATION: Soft, non-tender, normal bowel sounds EXTREMITIES: No pitting edema bilaterally SKIN: Warm and dry PSYCHIATRIC EXAMINATION: Normal mood and affect LABORATORY DATA: Please see below. IMAGING: Radiologist interpretation CT head 1. Chronic left anteromedial thalamic infarction. 2. Age appropriate supratentorial and infratentorial atrophy. 3. Mild chronic white matter microvascular ischemic disease. 4. No acute intracranial abnormality identified. MRI brain 1. Mild cerebral volume loss and chronic white matter changes. No acute intracranial abnormality. 2. Old left thalamic infarction. MRA head No significant stenosis, aneurysm, or large vessel occlusion. US carotid No hemodynamically significant areas of narrowing or stenosis appreciated. Based on set standards narrowing falls within the less than 50% range. PROGNOSIS: Good ACTIVITY: As tolerated. DIET: As tolerated DISCHARGE PLAN: Home DISPOSITION: 01 Home, Self-Care. DISCHARGE INSTRUCTIONS: 1. Follow up with PCP within 1 week 2. Follow up with ophthalmology, Dr. Presley ([phone]) within 1 week ITEMS TO FOLLOWUP ON ON OUTPATIENT: 1. Referral to ophthalmology, Dr. Presley 2. Cardiac surgery in [facility] 3. Anticoagulation status for atrial fibrillation. Of note, patient has history of hemorrhagic CVA DISCHARGE CONDITION: Stable. Total time spent on discharge planning, discharge summary, and medication reconciliation: 45 minutes Vital Signs/I&Os Vital Signs Date Time Temp Pulse Resp B/P (MAP) Pulse Ox O2 Delivery O2 Flow Rate FiO2 02/21/21 14:00 97.8 91 17 127/90 (102) 95 Room Air I&O- Last 24 Hours up to 6 AM 02/21/21 06:00 Intake Total 1150 ml Output Total 0 ml Balance 1150 ml Laboratory Data Labs 24H Laboratory Tests 2 02/21/21 05:47: Immature Granulocyte % (Auto) 0.2, Neutrophils (%) (Auto) 59.6, Lymphocytes (%) (Auto) 27.3, Monocytes (%) (Auto) 10.0H, Eosinophils (%) (Auto) 2.2, Basophils (%) (Auto) 0.7, Neutrophils # (Auto) 4.9, Lymphocytes # (Auto) 2.3, Monocytes # (Auto) 0.8, Eosinophils # (Auto) 0.2, Basophils # (Auto) 0.1, Nucleated Red Blood Cells % (auto) 0.0, Anion Gap 7L, Glomerular Filtration Rate 58.4, Lactic Acid Level 1.3, Calcium Level 8.2L, Magnesium Level 2.1, Total Bilirubin 1.2H, Aspartate Amino Transf (AST/SGOT) 26, Alanine Aminotransferase (ALT/SGPT) 56, Alkaline Phosphatase 82, Total Protein 6.5, Albumin 3.5, Albumin/Globulin Ratio 1.2, Thyroid Stimulating Hormone (TSH) 3.880H CBC/BMP Laboratory Tests 02/21/21 05:47 Discharge Medications Scheduled Aspirin (Aspirin EC) 81 Mg Tablet.dr, 81 MG PO DAILY for pain Atorvastatin Calcium (Atorvastatin Calcium) 80 Mg Tablet, 80 MG PO DAILY, (Reported) Carvedilol (Carvedilol) 3.125 Mg Tablet, 3.125 MG PO BID, (Reported) Chlorthalidone (Chlorthalidone) 25 Mg Tablet, 12.5 MG PO DAILY, (Reported) Losartan Potassium (Losartan Potassium) 100 Mg Tablet, 100 MG PO QHS, (Reported) Allergies Coded Allergies: No Known Allergies (Unverified , 04/12/19) RALEIGH MORAN DO Feb 21, 2021 22:37
--- NOTE | 2021-02-22 09:37 | ECHO ---
ECHOCARDIOGRAM DATE OF PROCEDURE: 02/21/2021 Age: 55 Gender: Male Height: 175 cm Weight: 103 kg REFERRING PHYSICIAN: Vincenzo Abbott MD and Cornelius Robertson DO INDICATION: Atrial fibrillation and transient ischemic attack (TIA). MEASUREMENTS: IVS 0.9 cm LV 4.8 cm LVPW 1.2 cm LA 4.1 cm Aorta 4.1 cm RV 3.1 Ascending aorta 3.8 FINDINGS: This study is of acceptable technical quality. The patient is in atrial fibrillation with controlled rate. Left ventricle is normal size. Borderline left ventricular hypertrophy is present. Overall preserved LV systolic function with estimated EF around 60%. Right ventricle also appears normal size and systolic function. Left atrium appears at least mildly enlarged. Right atrium was poorly visualization. The aortic valve is tricuspid. It is minimally sclerotic, but mobility is preserved. Mitral, tricuspid, and pulmonic valves appear normal. No pericardial effusion is noted. Inferior vena cava is normal size. Aortic root and visualized segment of ascending aorta are mildly dilated (4.1 and 3.8 cm respectively). Aortic arch and abdominal aorta were not well seen. Doppler interrogation reveals competent aortic and mitral valves. There is trace tricuspid insufficiency. Calculated pulmonary artery pressure is within normal limits. Mitral inflow pattern and tissue Doppler imaging of the mitral annulus are inconclusive due to underlying atrial fibrillation. CONCLUSIONS: 1. Study is of acceptable technical quality. The patient is in atrial fibrillation with controlled rate. 2. Normal LV size with borderline LVH and preserved LV systolic function. 3. Normal RV size and systolic function. 4. No hemodynamically significant valvular disease. 5. Normal central venous pressure and likely normal pulmonary artery pressure. 6. Dilated aortic root and visualized segment of ascending aorta (4.1 and 3.8 cm respectively).
[2021-02-28] MEDS ORDERED: APIXABAN 5 MG TAB (ELIQUIS) PO SCH (09:00)
== END 2021-02-21 17:21 | disposition home or self-care (01) ==
LOC: M ED 16:27 → EDBD 16:27 → M ED INP 16:28 → ENRESERV 02-21 00:42 → M MSPAV 02-21 01:12
PROVIDERS: ADMIT Family Medicine; ATTEND Internal Medicine
DX: G45.9 Transient cerebral ischemic attack, unspecified (principal); I48.91 Unspecified atrial fibrillation; I10 Essential (primary) hypertension; Z86.73 Personal history of transient ischemic attack (TIA), and cerebral infarction without residual deficits; H53.9 Unspecified visual disturbance; E78.00 Pure hypercholesterolemia, unspecified; G93.89 Other specified disorders of brain; I67.82 Cerebral ischemia; H53.2 Diplopia; R42 Dizziness and giddiness

== ENCOUNTER 2021-03-28 09:20 | Emergency (ER) | payer OTHER ==
[~2021-03-28] VITALS: Ht 175.3 cm; Wt 100.0 kg
[~2021-03-28 09:20] MED LIST changes: +ASPI81TA26 PO; +CARV3.12 PO; +CHLO125TA PO; -LISI20TA20 PO; +LISI20TA37 PO; +LOSA100T45 PO
[2021-03-28 12:46] LABS: BASO % 0.4 % (0.0-1.0); EOS # 0.2 10^3/uL (0.0-0.5); EOS % 1.7 % (0.0-3.0); HEMATOCRIT 51.9 % (42.0-52.0); HEMOGLOBIN 17.6 g/dl (13.5-17.5); LYMPH % 20.2 % (24.0-44.0); MEAN CORPUSCULAR HGB CONC 33.9 g/dl (32.0-36.5); MEAN CORPUSCULAR VOLUME 94.4 fl (80.0-96.0); MONO % 10.4 % (2.0-8.0); NEUTROPHILS # 6.6 10^3/uL (1.5-8.5); PLATELET COUNT, AUTOMATED 194 10^3/uL (150-450); WHITE BLOOD COUNT 9.8 10^3/uL (4.0-10.0)
[2021-03-28 12:46] LABS: ALT/SGPT 57 U/L (12-78); BILIRUBIN,DIRECT 0.2 MG/DL (0.0-0.2); BILIRUBIN,TOTAL 0.6 MG/DL (0.2-1.0); BLOOD UREA NITROGEN 24 MG/DL (7-18); CALCIUM LEVEL 8.6 MG/DL (8.5-10.1); CARBON DIOXIDE LEVEL 30 MEQ/L (21-32); CHLORIDE LEVEL 106 MEQ/L (98-107); CREATININE FOR GFR 1.27 MG/DL (0.70-1.30); GLOMERULAR FILTRATION RATE > 60.0 (>56); GLUCOSE, FASTING 82 MG/DL (70-100); POTASSIUM SERUM 4.1 MEQ/L (3.5-5.1); SODIUM LEVEL 142 MEQ/L (136-145); TOTAL PROTEIN 7.4 GM/DL (6.4-8.2)
[2021-03-28 12:57] LABS: RSV AMPLIFICATION NEGATIVE (NEGATIVE)
[2021-03-28] MEDS ORDERED: NS 1,000 ML IV ONE (13:20)
[2021-03-28 15:31] VITALS: BP 153/98
== END 2021-03-28 15:48 | disposition short-term general hospital (02) ==
LOC: M ED 09:20
DX: I99.8 Other disorder of circulatory system (principal); I10 Essential (primary) hypertension; E78.5 Hyperlipidemia, unspecified; G47.30 Sleep apnea, unspecified; Z86.79 Personal history of other diseases of the circulatory system; Z79.82 Long term (current) use of aspirin; Z79.899 Other long term (current) drug therapy

== ENCOUNTER → 2021-06-04 | Outpatient (CLI) | payer OTHER ==
[~2021-06-04] MED LIST changes: +LISI20TA20 PO; -LISI20TA37 PO; -LOSA100T45 PO; +LOSA100T50 PO
[2021-06-04 13:53] LABS: BASO % 0.5 % (0.0-1.0); EOS # 0.2 10^3/uL (0.0-0.5); EOS % 2.4 % (0.0-3.0); HEMOGLOBIN 15.9 g/dl (13.5-17.5); LYMPH # 1.9 10^3/uL (1.5-5.0); LYMPH % 23.8 % (24.0-44.0); MEAN CORPUSCULAR HEMOGLOBIN 32.1 pg (27.0-33.0); MEAN CORPUSCULAR HGB CONC 33.8 g/dl (32.0-36.5); MEAN CORPUSCULAR VOLUME 94.9 fl (80.0-96.0); MONO # 0.6 10^3/uL (0.0-0.8); MONO % 7.7 % (2.0-8.0); NEUTROPHILS # 5.2 10^3/uL (1.5-8.5); NEUTROPHILS % 65.3 % (36.0-66.0); PLATELET COUNT, AUTOMATED 199 10^3/uL (150-450); RED BLOOD COUNT 4.95 10^6/uL (4.30-6.10)
[2021-06-04 14:26] LABS: CALCIUM LEVEL 9.3 MG/DL (8.5-10.1); CREATININE FOR GFR 1.33 MG/DL (0.70-1.30); FREE T4 0.99 NG/DL (0.76-1.46); GLOMERULAR FILTRATION RATE 59.4 (>56); POTASSIUM SERUM 3.9 MEQ/L (3.5-5.1); THYROID STIMULATING HORMONE 2.52 uIU/ML (0.358-3.740)
== END ==
LOC: M PLALAB 09:42
PROVIDERS: ATTEND Internal Medicine Cardiovascular Disease
DX: I48.0 Paroxysmal atrial fibrillation (principal)

== ENCOUNTER → 2021-06-25 | Outpatient (CLI) | payer OTHER ==
--- NOTE | 2021-06-25 13:14 | REP ---
INDICATION: PAIN IN RIGHT FOOT COMPARISON: None. TECHNIQUE: AP, lateral, bilateral oblique views right foot. FINDINGS: Mild hallux valgus deformity is appreciated along with increased sclerosis and minimal joint space narrowing at the 1st metatarsophalangeal (MTP) joint. There is subtle cortical irregularity at the head of the 5th metatarsal bone with adjacent soft tissue swelling. Remainder of the examination is essentially age-appropriate. No obvious acute fracture or dislocation. IMPRESSION: Mild/moderate degenerative changes primarily involving the 1st and 5th MTP joints.. <Electronically signed by Shahram Briggs > 06/25/21 [id number]
[2021-06-25 16:00] LABS: HEMOGLOBIN A1c 5.8 %
[2021-06-25 17:24] LABS: C REACTIVE PROTEIN QUANTITATIV < 0.30 MG/DL (0.00-0.30); RHEUMATOID FACTOR QUANT < 10.0 IU/ML (<15.0); URIC ACID 7.9 MG/DL (3.5-7.2)
== END ==
LOC: M PLAIMG 12:37
DX: M79.671 Pain in right foot (principal); M19.90 Unspecified osteoarthritis, unspecified site

== ENCOUNTER → 2021-08-08 | Outpatient (CLI) | payer OTHER | LOC: M LABSMTC 09:18 | PROVIDERS: ATTEND Family Medicine | DX: U07.1 COVID-19 (principal) ==

== ENCOUNTER → 2021-12-30 | Outpatient (CLI) | payer OTHER ==
[~2021-12-30] MED LIST changes: -LISI20TA20 PO; +LISI20TA37 PO; +LOSA100T45 PO; -LOSA100T50 PO
[2021-12-30 15:29] LABS: BASO # 0.1 10^3/uL (0.0-0.2); BASO % 0.6 % (0.0-1.0); EOS # 0.2 10^3/uL (0.0-0.5); HEMATOCRIT 51.7 % (42.0-52.0); HEMOGLOBIN 17.8 g/dl (13.5-17.5); LYMPH # 2.9 10^3/uL (1.5-5.0); LYMPH % 30.3 % (24.0-44.0); MEAN CORPUSCULAR HEMOGLOBIN 33.3 pg (27.0-33.0); MEAN CORPUSCULAR HGB CONC 34.4 g/dl (32.0-36.5); MEAN CORPUSCULAR VOLUME 96.6 fl (80.0-96.0); MONO # 1.1 10^3/uL (0.0-0.8); MONO % 11.9 % (2.0-8.0); NEUTROPHILS # 5.2 10^3/uL (1.5-8.5); NEUTROPHILS % 54.8 % (36.0-66.0); PLATELET COUNT, AUTOMATED 224 10^3/uL (150-450); RED BLOOD COUNT 5.35 10^6/uL (4.30-6.10); WHITE BLOOD COUNT 9.5 10^3/uL (4.0-10.0)
== END ==
LOC: M PLAIMG 12:14
PROVIDERS: ATTEND Internal Medicine Hematology
DX: M25.562 Pain in left knee (principal)

== ENCOUNTER 2023-10-18 15:36 | Emergency (ER) | payer OTHER ==
[~2023-10-18] VITALS: Ht 175.3 cm; Wt 96.6 kg
[~2023-10-18 15:36] MED LIST changes: -LOSA100T45 PO; +LOSA100T46 PO; +MECL-209 PO; -MECL1TAB31 PO
[2023-10-18] MEDS ORDERED: ELIQ5TAB (15:57)
[2023-10-18] MEDS ORDERED: ASPE4PAD TOP (23:14)
[2023-10-18] MEDS ORDERED: METH-1165 PO (23:14)
[2023-10-18 23:20] VITALS: BP 132/85; TEMP 97.4; O2SAT 96
== END 2023-10-18 23:26 | disposition home or self-care (01) ==
LOC: M ED 15:36
DX: K80.20 Calculus of gallbladder without cholecystitis without obstruction (principal); S29.012A Strain of muscle and tendon of back wall of thorax, initial encounter; S39.012A Strain of muscle, fascia and tendon of lower back, initial encounter; M62.830 Muscle spasm of back; X58.XXXA Exposure to other specified factors, initial encounter; Y92.9 Unspecified place or not applicable; Y93.9 Activity, unspecified; Y99.9 Unspecified external cause status; Z86.73 Personal history of transient ischemic attack (TIA), and cerebral infarction without residual deficits; I10 Essential (primary) hypertension; E78.5 Hyperlipidemia, unspecified; G47.33 Obstructive sleep apnea (adult) (pediatric); Z79.899 Other long term (current) drug therapy

== ENCOUNTER 2025-01-25 13:13 | Inpatient (IN) | payer OTHER, SELFPAY ==
[~2025-01-25] VITALS: Ht 175.3 cm; Wt 101.1 kg
[~2025-01-25 13:13] MED LIST changes: +ASPE4PAD TOP; +ELIQ5TAB PO; +METH-1165 PO
[2025-01-25 14:05] LABS: BASO % 0.5 % (0.0-1.0); EOS # 0.1 10^3/uL (0.0-0.5); EOS % 0.7 % (0.0-3.0); HEMATOCRIT 50.6 % (42.0-52.0); HEMOGLOBIN 17.7 g/dl (13.5-17.5); LYMPH # 0.9 10^3/uL (1.5-5.0); LYMPH % 11.4 % (24.0-44.0); MEAN CORPUSCULAR HEMOGLOBIN 32.8 pg (27.0-33.0); MEAN CORPUSCULAR VOLUME 93.9 fl (80.0-96.0); MONO % 13.1 % (2.0-8.0); NEUTROPHILS # 5.6 10^3/uL (1.5-8.5); NEUTROPHILS % 73.9 % (36.0-66.0); PLATELET COUNT, AUTOMATED 174 10^3/uL (150-450); RED BLOOD COUNT 5.39 10^6/uL (4.30-6.10); WHITE BLOOD COUNT 7.6 10^3/uL (4.0-10.0)
[2025-01-25] MEDS ORDERED: ISOVUE-370 76% 100ML VIAL As Ordered ONE (14:15)
[2025-01-25 14:20] LABS: INR 1.04; PARTIAL THROMBOPLASTIN TIME 27.1 SECONDS (24.8-34.2); PROTHROMBIN TIME 13.9 SECONDS (12.5-14.5)
[2025-01-25] MEDS: MORPHINE 4 MG/ML 1ML VIAL IV PRN (15:56)
[2025-01-25] MEDS: ONDANSETRON 4MG 2ML VIAL IV ONE (15:56)
[2025-01-25] MEDS: OSELTAMIVIR PHOSPHATE 75 MG CAP PO ONE (17:23)
[2025-01-25] MEDS: CARVedilol 3.125 MG TAB PO ONE (18:02)
[2025-01-25] MEDS: MECLIZINE 25 MG TABLET PO ONE (18:25)
[2025-01-25 18:42] LABS: CALCIUM LEVEL 8.6 MG/DL (8.5-10.1); CREATININE FOR GFR 1.41 MG/DL (0.70-1.30); GLOMERULAR FILTRATION RATE 57.4 (>56); POTASSIUM SERUM 3.2 MMOL/L (3.5-5.1)
[2025-01-25] MEDS: NS 500 ML IV ONE (18:50)
[2025-01-25] MEDS ORDERED: IBUP200T46 PO (18:59)
[2025-01-25] MEDS ORDERED: HOME MED LIST COMPLETE! XX SCH (19:00)
[2025-01-25] MEDS ORDERED: MOM 30ML SUSPENSION UDC PO PRN (19:45)
[2025-01-25] MEDS ORDERED: MAALOX 30 ML SUSP *UDC PO PRN (19:45)
[2025-01-25] MEDS: ACETAMINOPHEN *IV* 1,000 MG in IV 1 EA IV ONE (20:55)
[2025-01-25 21:06] LABS: CK-MB VALUE MASS < 1.0 NG/ML (<3.6)
[2025-01-25 21:08] LABS: ALBUMIN 3.5 G/DL (3.2-5.2); ALKALINE PHOSPHATASE 67 U/L (40-129); ALT/SGPT 28 U/L (7.0-40); AST/SGOT 27 U/L (<34); BILIRUBIN,DIRECT 0.2 MG/DL (<0.4); BILIRUBIN,TOTAL 0.6 MG/DL (0.3-1.2); CHOLESTEROL LEVEL 193 MG/DL (<200); CHOLESTEROL RISK RATIO 5.05 (<5); HDL CHOLESTEROL 38.2 MG/DL (>40); LDL CHOLESTEROL 123.8 MG/DL (<100); NON-HDL-C 154.8 MG/DL; TOTAL PROTEIN 6.5 G/DL (5.7-8.2); TRIGLYCERIDES LEVEL 155 MG/DL (<150)
[2025-01-25 21:11] LABS: CPK CREATINE PHOSPHOKINASE 244 U/L (46-171)
[2025-01-25] MEDS: KCL 10MEQ/100ML SWI (KRUN) 10 MEQ in IV 1 EA IV ONE (21:24)
[2025-01-25] MEDS: LOSARTAN 50MG TABLET PO SCH (21:28)
[2025-01-25] MEDS: POTASSIUM CHLORIDE 10MEQ SR TABLET PO ONE (21:28)
[2025-01-25] MEDS: APIXABAN 5 MG TAB (ELIQUIS) PO SCH (21:29)
[2025-01-25] MEDS: CARVedilol 3.125 MG TAB PO SCH (21:29)
[2025-01-25] MEDS: DOCUSATE SODIUM 100MG CAPSULE PO SCH (21:29)
[2025-01-25] MEDS: OSELTAMIVIR PHOSPHATE 75 MG CAP PO SCH (21:29)
[2025-01-25 22:00] VITALS: BP 137/81; TEMP 101.3; O2SAT 94
[2025-01-25 23:00] VITALS: O2SAT 90
[2025-01-25 23:14] VITALS: BP 116/62; TEMP 98.8; O2SAT 92
[2025-01-25] MEDS: LR 1,000 ML IV SCH (23:28)
[2025-01-25 23:30] VITALS: O2SAT 88
[2025-01-25 23:35] VITALS: O2SAT 93
[2025-01-26] VITALS (14 sets, daily range): BP systolic 110–127; BP diastolic 70–81; TEMP 98.3–100.8; O2SAT 90–97
[2025-01-26] MEDS: ACETAMINOPHEN 325 MG TAB PO PRN (04:35)
[2025-01-26 05:04] LABS: HEMATOCRIT 46.5 % (42.0-52.0); HEMOGLOBIN 15.8 g/dl (13.5-17.5); MEAN CORPUSCULAR HEMOGLOBIN 32.1 pg (27.0-33.0); MEAN CORPUSCULAR VOLUME 94.5 fl (80.0-96.0); PLATELET COUNT, AUTOMATED 145 10^3/uL (150-450); RED BLOOD COUNT 4.92 10^6/uL (4.30-6.10); WHITE BLOOD COUNT 6.9 10^3/uL (4.0-10.0)
[2025-01-26 05:42] LABS: ALBUMIN 3.2 G/DL (3.2-5.2); BILIRUBIN,TOTAL 0.5 MG/DL (0.3-1.2); CALCIUM LEVEL 8.2 MG/DL (8.5-10.1); CREATININE FOR GFR 1.34 MG/DL (0.70-1.30); MAGNESIUM LEVEL 1.7 MG/DL (1.8-2.4); POTASSIUM SERUM 3.8 MMOL/L (3.5-5.1); TOTAL PROTEIN 6.1 G/DL (5.7-8.2)
[2025-01-26] MEDS: ATORVASTATIN 20 MG TAB PO SCH (08:26)
[2025-01-26] MEDS: MECLIZINE 25 MG TABLET PO ONE (09:34)
[2025-01-26] MEDS: methylPREDNISolone 125MG 2ML VIAL IV ONE (09:34)
[2025-01-26] MEDS: MECLIZINE 25 MG TABLET PO PRN (21:01)
[2025-01-27 03:13] VITALS: BP 117/68; TEMP 98.6; O2SAT 96
[2025-01-27 07:25] VITALS: BP 121/74; TEMP 97.6; O2SAT 93
[2025-01-27] MEDS: MAGNESIUM OXIDE 400MG TAB (MAG-OX) PO ONE (08:31)
[2025-01-27 08:39] LABS: HEMATOCRIT 49.1 % (42.0-52.0); HEMOGLOBIN 17.4 g/dl (13.5-17.5); MEAN CORPUSCULAR HEMOGLOBIN 33.1 pg (27.0-33.0); MEAN CORPUSCULAR HGB CONC 35.4 g/dl (32.0-36.5); MEAN CORPUSCULAR VOLUME 93.3 fl (80.0-96.0); PLATELET COUNT, AUTOMATED 127 10^3/uL (150-450); RED BLOOD COUNT 5.26 10^6/uL (4.30-6.10); WHITE BLOOD COUNT 10.9 10^3/uL (4.0-10.0)
[2025-01-27 09:07] LABS: BILIRUBIN,TOTAL 0.6 MG/DL (0.3-1.2); CREATININE FOR GFR 1.2 MG/DL (0.70-1.30); GLOMERULAR FILTRATION RATE 69.7 (>56); MAGNESIUM LEVEL 1.7 MG/DL (1.8-2.4); POTASSIUM SERUM 3.6 MMOL/L (3.5-5.1); TOTAL PROTEIN 6.3 G/DL (5.7-8.2)
[2025-01-27] MEDS: predniSONE 20 MG TAB PO SCH (11:25)
[2025-01-27] MEDS: TOPIRAMATE (TopAMAX) 25 MG TAB PO SCH (12:10)
[2025-01-27 16:00] VITALS: BP 119/76; TEMP 97.6; O2SAT 94
[2025-01-27 19:28] VITALS: BP 111/72; TEMP 97.9; O2SAT 94
[2025-01-27 23:01] VITALS: BP 100/62; TEMP 97.5; O2SAT 95
[2025-01-28 03:00] VITALS: BP 113/77; TEMP 97.8; O2SAT 93
[2025-01-28 07:33] VITALS: BP 121/83; TEMP 97.5; O2SAT 97
[2025-01-28 08:26] VITALS: BP 121/83
[2025-01-28] MEDS: TOPIRAMATE (TopAMAX) 25 MG TAB PO SCH (09:16)
[2025-01-28 11:53] VITALS: BP 126/79; TEMP 96.9; O2SAT 97
[2025-01-28] MEDS ORDERED: PANT20TA6 PO (11:57)
[2025-01-28] MEDS ORDERED: TOPA1TAB PO (11:57)
[2025-01-28] MEDS ORDERED: PRED20TA PO (11:57)
[2025-01-28] MEDS ORDERED: MECL-86 PO (11:57)
== END 2025-01-28 14:52 | disposition home or self-care (01) | DRG 111 ==
LOC: M ED 13:13 → M ED INP 19:42 → M PCU 21:52
PROVIDERS: ADMIT Student in an Organized Health Care Education/Training Program; ATTEND Student in an Organized Health Care Education/Training Program
DX: H81.4 Vertigo of central origin (principal); I69.351 Hemiplegia and hemiparesis following cerebral infarction affecting right dominant side; I10 Essential (primary) hypertension; I48.20 Chronic atrial fibrillation, unspecified; J10.1 Influenza due to other identified influenza virus with other respiratory manifestations; E11.9 Type 2 diabetes mellitus without complications; H53.2 Diplopia; I69.398 Other sequelae of cerebral infarction; G44.221 Chronic tension-type headache, intractable; E87.6 Hypokalemia; H53.8 Other visual disturbances; Z79.01 Long term (current) use of anticoagulants; Z79.899 Other long term (current) drug therapy

== ENCOUNTER 2025-05-18 03:57 | Inpatient (IN) | payer OTHER ==
[2025-05-18] VITALS (8 sets, daily range): BP systolic 131–146; BP diastolic 82–98; PULSE 76–105; TEMP 97.6–98.6; O2SAT 91–98
[~2025-05-18] VITALS: Ht 175.3 cm; Wt 97.2 kg
[~2025-05-18 03:57] MED LIST changes: +IBUP200T46 PO; +MECL-86 PO; +PANT20TA6 PO; +PRED20TA PO; +TOPA1TAB PO
[2025-05-18 05:00] LABS: BASO # 0.1 10^3/uL (0.0-0.2); BASO % 0.4 % (0.0-1.0); EOS # 0.1 10^3/uL (0.0-0.5); EOS % 0.8 % (0.0-3.0); LYMPH # 1.8 10^3/uL (1.5-5.0); LYMPH % 15.6 % (24.0-44.0); MONO # 1.0 10^3/uL (0.0-0.8); MONO % 9.2 % (2.0-8.0); NEUTROPHILS # 8.3 10^3/uL (1.5-8.5); NEUTROPHILS % 73.7 % (36.0-66.0); PLATELET COUNT, AUTOMATED 248 10^3/uL (150-450)
[2025-05-18 05:15] LABS: INR 1.02
[2025-05-18] MEDS: MORPHINE 4 MG/ML 1 ML VIAL IV ONE (05:26)
[2025-05-18 05:30] LABS: CK-MB VALUE MASS 2.2 NG/ML (<3.6)
[2025-05-18 05:32] LABS: ALT/SGPT 27.0 U/L (7.0-40); AST/SGOT 25.0 U/L (<34); CALCIUM LEVEL 8.7 MG/DL (8.5-10.1); CARBON DIOXIDE LEVEL 26.0 MMOL/L (20-31); CHLORIDE LEVEL 106.0 MMOL/L (98-107); CREATININE FOR GFR 0.98 MG/DL (0.70-1.30); GLOMERULAR FILTRATION RATE 88.8 (>56); POTASSIUM SERUM 3.9 MMOL/L (3.5-5.1); SODIUM LEVEL 144.0 MMOL/L (136-145)
[2025-05-18 05:38] LABS: CPK CREATINE PHOSPHOKINASE 106.0 U/L (46-171); MB/CK RELATIVE INDEX 2.07 (< OR =4)
[2025-05-18] MEDS ORDERED: ISOVUE-370 76% 100 ML VIAL As Ordered ONE (06:13)
[2025-05-18] MEDS ORDERED: HEPARIN SOD 5000 UNITS/ML 1 ML VIAL/SYRINGE IV PRN (07:10)
[2025-05-18] MEDS: HEPARIN DRIP 25,000 UNITS in IV 1 EA IV SCH (07:37)
[2025-05-18] MEDS ORDERED: IBUP200C25 PO (08:02)
[2025-05-18] MEDS ORDERED: HOME MED LIST COMPLETE! XX SCH (08:05)
[2025-05-18] MEDS ORDERED: METOPROLOL TART 25 MG TABLET PO SCH (09:00)
[2025-05-18] MEDS: ACETAMINOPHEN 500 MG TAB PO SCH (10:03)
[2025-05-18] MEDS: PANTOPRAZOLE 40MG TAB PO SCH (10:03)
[2025-05-18] MEDS: TOPIRAMATE 25 MG TAB PO SCH (10:03)
[2025-05-18] MEDS: APIXABAN 5 MG TAB PO SCH (10:04)
[2025-05-18] MEDS: AUGMENTIN 875 MG TAB PO SCH (12:40)
[2025-05-18] MEDS: KETOROLAC 30 MG/ML 1 ML VIAL IV PRN (16:49)
[2025-05-19 04:13] VITALS: BP 144/109; TEMP 97; O2SAT 99
[2025-05-19 06:15] LABS: BASO # 0.0 10^3/uL (0.0-0.2); BASO % 0.4 % (0.0-1.0); EOS # 0.1 10^3/uL (0.0-0.5); EOS % 1.1 % (0.0-3.0); LYMPH # 1.5 10^3/uL (1.5-5.0); LYMPH % 16.3 % (24.0-44.0); MONO # 1.0 10^3/uL (0.0-0.8); MONO % 11.1 % (2.0-8.0); NEUTROPHILS # 6.5 10^3/uL (1.5-8.5); NEUTROPHILS % 70.8 % (36.0-66.0); PLATELET COUNT, AUTOMATED 234 10^3/uL (150-450)
[2025-05-19 06:50] LABS: CALCIUM LEVEL 8.4 MG/DL (8.5-10.1); CARBON DIOXIDE LEVEL 28.0 MMOL/L (20-31); CHLORIDE LEVEL 109.0 MMOL/L (98-107); CREATININE FOR GFR 1.26 MG/DL (0.70-1.30); GLOMERULAR FILTRATION RATE 65.7 (>56); POTASSIUM SERUM 3.8 MMOL/L (3.5-5.1); SODIUM LEVEL 146.0 MMOL/L (136-145)
[2025-05-19 07:39] VITALS: BP 165/108; TEMP 97; O2SAT 92
[2025-05-19 09:01] VITALS: BP 165/108
[2025-05-19] MEDS: amLODIPine 5 MG TAB PO SCH (09:01)
[2025-05-19 11:25] VITALS: BP 145/98; TEMP 97.6; O2SAT 92
[2025-05-19] MEDS ORDERED: ELIQ5TAB PO (13:05)
[2025-05-19] MEDS ORDERED: AMOX875T2 PO (13:05)
[2025-05-19] MEDS ORDERED: TOPA1TAB PO (13:05)
[2025-05-19] MEDS ORDERED: IBUP200C25 PO (13:05)
[2025-05-19] MEDS ORDERED: CARV6.25 PO (13:05)
[2025-05-19] MEDS ORDERED: AMLO1TAB24 PO (13:05)
[2025-05-25] MEDS ORDERED: APIXABAN 5 MG TAB PO SCH (09:00)
== END 2025-05-19 14:04 | disposition home or self-care (01) | DRG 134 ==
LOC: M ED 03:57 → M ED INP 08:29 → M PCU 10:09
PROVIDERS: ADMIT Internal Medicine Nephrology; ATTEND Internal Medicine Nephrology
PROC: B246ZZZ Ultrasonography of Right and Left Heart (ICD-10-PCS; principal; 2025-05-18)
DX: I26.99 Other pulmonary embolism without acute cor pulmonale (principal); J18.9 Pneumonia, unspecified organism; I48.91 Unspecified atrial fibrillation; I10 Essential (primary) hypertension; I69.319 Unspecified symptoms and signs involving cognitive functions following cerebral infarction; E11.9 Type 2 diabetes mellitus without complications; I69.341 Monoplegia of lower limb following cerebral infarction affecting right dominant side; R07.89 Other chest pain; Z98.2 Presence of cerebrospinal fluid drainage device; Z86.718 Personal history of other venous thrombosis and embolism

== ENCOUNTER 2025-07-03 11:43 | Emergency (ER) | payer OTHER ==
[~2025-07-03] VITALS: Ht 177.8 cm; Wt 100.0 kg
[~2025-07-03 11:43] MED LIST changes: +AMLO1TAB24 PO; +AMOX875T2 PO; +CARV6.25 PO
[2025-07-03 11:45] VITALS: TEMP 96.7
[2025-07-03] MEDS ORDERED: CARV6.25 PO (15:03)
[2025-07-03] MEDS ORDERED: ELIQ5TAB PO (15:03)
[2025-07-03] MEDS ORDERED: TOPA1TAB PO (15:03)
[2025-07-03] MEDS ORDERED: AMLO1TAB24 PO (15:03)
[2025-07-03 15:09] VITALS: BP 128/93; O2SAT 96
== END 2025-07-03 15:10 | disposition home or self-care (01) ==
LOC: M ED 11:43
DX: Z76.0 Encounter for issue of repeat prescription (principal); I10 Essential (primary) hypertension; Z86.73 Personal history of transient ischemic attack (TIA), and cerebral infarction without residual deficits; Z86.711 Personal history of pulmonary embolism; Z79.01 Long term (current) use of anticoagulants; Z79.899 Other long term (current) drug therapy

== ENCOUNTER → 2025-09-18 | Outpatient (CLI) | payer OTHER ==
[2025-09-18 15:08] LABS: PLATELET COUNT, AUTOMATED 222 10^3/uL (150-450)
[2025-09-18 15:28] LABS: MALB URINE SIEMENS 16.0 MG/L
[2025-09-18 15:29] LABS: ALT/SGPT 23.0 U/L (7.0-40); AST/SGOT 18.0 U/L (<34); CALCIUM LEVEL 9.0 MG/DL (8.3-10.6); CARBON DIOXIDE LEVEL 24.0 MMOL/L (20-31); CHLORIDE LEVEL 108.0 MMOL/L (98-107); CHOLESTEROL LEVEL 224.0 MG/DL (<200); CHOLESTEROL RISK RATIO 4.97 (<5); CREATININE FOR GFR 1.34 MG/DL (0.70-1.30); GLOMERULAR FILTRATION RATE 60.7 (>49); LDL CHOLESTEROL 134.2 MG/DL (<100); NON-HDL-C 179.0 MG/DL; POTASSIUM SERUM 3.7 MMOL/L (3.5-5.1); SODIUM LEVEL 143.0 MMOL/L (136-145); TRIGLYCERIDES LEVEL 224.0 MG/DL (<150)
[2025-09-18 15:39] LABS: INR 1.06
[2025-09-18 15:41] LABS: CREATININE, URINE 403.0 MG/DL; MAU/CREAT RATIO 3.9 MCG/MG (0.0-30.0)
[2025-09-18 15:50] LABS: ESTIMATED AVERAGE GLUCOSE 111.0 MG/DL (60-110)
[2025-09-20 12:40] LABS: HOMOCYST(E)INE SERUM 20.9 umol/L (< or = 15.2)
[2025-09-22 06:18] LABS: FACTOR V 101 % normal (65-150)
[2025-09-23 00:09] LABS: Anticardiolipin Ab, IGG 4.9 GPL-U/mL (<20.0); Anticardiolipin Ab, IGM < 2.0 MPL-U/mL (<20.0); Anticardiolipin Ab, IgA < 2.0 APL-U/mL (<20.0); Beta-2 GLYCOPROTEIN I, IGG < 2.0 U/mL (<20.0); Beta-2 Glycoprotein I, IGA < 2.0 U/mL (<20.0); Beta-2 Glycoprotein I, IGM < 2.0 U/mL (<20.0)
[2025-09-24 00:44] LABS: ANTI THROMBIN 3 FUNCT ACTIVITY 113 % normal (80-135); PROTEIN C FUNCTIONAL ACTIVITY 126 % normal (70-180); PROTEIN S FUNCTIONAL ACTIVITY 110 % normal (70-150)
[2025-09-24 06:43] LABS: APTT APSCOMP 38 sec (<=40); DRVTT Screen Seconds 45 sec (<=45)
== END ==
LOC: M LAB 14:00
PROVIDERS: ATTEND Student in an Organized Health Care Education/Training Program
DX: Z86.711 Personal history of pulmonary embolism (principal); Z86.31 Personal history of diabetic foot ulcer; I10 Essential (primary) hypertension; I48.0 Paroxysmal atrial fibrillation